=== PATIENT | female | born 1980 | race African-American/Black ===

== ENCOUNTER 2022-02-13 02:52 | Emergency (ER) | payer MEDICAID ==
[~2022-02-13] VITALS: Ht 175.3 cm; Wt 84.0 kg
[2022-02-13 02:56] VITALS: BP 142/76
[2022-02-13] MEDS ORDERED: CHLORPROMAZINE HCL 25MG/1ML AMP IM ONE (03:30)
== END 2022-02-13 03:55 | disposition home or self-care (01) ==
LOC: ER 03:12
DX: T43.621A Poisoning by amphetamines, accidental (unintentional), initial encounter (principal); F15.151 Other stimulant abuse with stimulant-induced psychotic disorder with hallucinations; R00.0 Tachycardia, unspecified; F20.9 Schizophrenia, unspecified; Y92.89 Other specified places as the place of occurrence of the external cause
CPT/HCPCS: 96372; 99283; J3230